=== PATIENT | male | born 2000 | race Caucasian/White ===

== ENCOUNTER 2019-09-17 09:23 | Emergency (ER) | payer MEDICAID ==
[~2019-09-17] VITALS: Ht 185.4 cm; Wt 113.4 kg
[2019-09-17 09:31] VITALS: BP_SYST 122
--- NOTE | 2019-09-17 09:31 | NUR ---
Patient to ER bed 3 to gown for evaluation. Side rails up.
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
--- NOTE | 2019-09-17 09:36 | NUR ---
AYO Gonzalez at bedside examining patient.
--- NOTE | 2019-09-17 09:44 | NUR ---
medicated w/ Motrin 800mg per MD order. Will reassess.
[2019-09-17] MEDS ORDERED: IBUPROFEN 800 MG TABLET PO ONE (09:45)
--- NOTE | 2019-09-17 10:15 | NUR ---
Patient transported to radiology via gurney, accompanied by x-ray tech.
[2019-09-17 10:49] VITALS: BP_SYST 122
--- NOTE | 2019-09-17 10:50 | NUR ---
Patient given written and verbal discharge instructions and verbalizes understanding. ER MD discussed with patient the results and treatment provided. Patient in stable condition. ID arm band removed. Rx of Motrin given. Patient educated on pain management and to follow up with PMD. Pain Scale 3/10. Opportunity for questions provided and answered. Medication side effect fact sheet provided.
== END 2019-09-17 10:49 | disposition home or self-care (01) ==
LOC: SED 09:23
DX: S20.212A Contusion of left front wall of thorax, initial encounter (principal); Y04.0XXA Assault by unarmed brawl or fight, initial encounter; Y93.89 Activity, other specified; Y92.89 Other specified places as the place of occurrence of the external cause; Y99.8 Other external cause status
CPT/HCPCS: 71100; 99283

== ENCOUNTER 2021-02-10 10:48 | Emergency (ER) | payer MEDICAID ==
[~2021-02-10] VITALS: Ht 188 cm; Wt 102.1 kg
[2021-02-10 10:50] VITALS: BP_SYST 126
[2021-02-10] MEDS ORDERED: IBUP-1971 PO (11:22)
[2021-02-10] MEDS ORDERED: BACITRACIN 1 GM OINT TP ONE (11:30)
[2021-02-10] MEDS ORDERED: LIDOCAINE 1% 10 MG/ML, 20 ML MDV INJ ONE (11:30)
[2021-02-10] MEDS ORDERED: IBUPROFEN 800 MG TABLET PO ONE (11:30)
[2021-02-10] MEDS ORDERED: DIPH-TET-PERTUS Vaccine 0.5 ML VIAL (ADACEL) I.M. ONE (11:30)
== END 2021-02-10 12:05 | disposition home or self-care (01) ==
LOC: SED 10:48
DX: L60.0 Ingrowing nail (principal); Z79.899 Other long term (current) drug therapy
CPT/HCPCS: 11730; 90471; 90715; 99284; J2001